=== PATIENT | female | born 2000 | race Two or more races ===

== ENCOUNTER 2024-01-28 09:11 | Outpatient (CLI) | payer OTHER | END 2024-01-28 09:18 | disposition home or self-care (01) | LOC: PRENATAL 09:11 | PROVIDERS: ATTEND Obstetrics & Gynecology Maternal & Fetal Medicine | DX: O35.9XX0 Maternal care for (suspected) fetal abnormality and damage, unspecified, not applicable or unspecified (principal); O35.3XX0 Maternal care for (suspected) damage to fetus from viral disease in mother, not applicable or unspecified; O24.419 Gestational diabetes mellitus in pregnancy, unspecified control; O44.02 Complete placenta previa NOS or without hemorrhage, second trimester; Z3A.26 26 weeks gestation of pregnancy ==

== ENCOUNTER 2024-03-10 13:32 | Outpatient (CLI) | payer OTHER | END 2024-03-10 13:33 | disposition home or self-care (01) | LOC: PRENATAL 13:32 | PROVIDERS: ATTEND Obstetrics & Gynecology Maternal & Fetal Medicine | DX: O26.843 Uterine size-date discrepancy, third trimester (principal); O36.8130 Decreased fetal movements, third trimester, not applicable or unspecified; O24.419 Gestational diabetes mellitus in pregnancy, unspecified control; Z3A.32 32 weeks gestation of pregnancy ==

== ENCOUNTER 2024-04-07 10:11 | Outpatient (CLI) | payer OTHER | END 2024-04-07 10:12 | disposition home or self-care (01) | LOC: PRENATAL 10:11 | PROVIDERS: ATTEND Obstetrics & Gynecology Maternal & Fetal Medicine | DX: O26.849 Uterine size-date discrepancy, unspecified trimester (principal); O36.8199 Decreased fetal movements, unspecified trimester, other fetus; O24.419 Gestational diabetes mellitus in pregnancy, unspecified control; Z3A.36 36 weeks gestation of pregnancy ==